=== PATIENT | male | born 1960 | race Caucasian/White ===

== ENCOUNTER → 2020-07-01 | Outpatient (CLI) | payer OTHER ==
--- NOTE | 2020-07-01 14:51 | FL ---
EXAMINATION TYPE: FL barium swallow DATE OF EXAM: 07/01/2020 CLINICAL INDICATION: 60-year-old male R13.10, dysphagia COMPARISON: None Total Fluoroscopy Time: 3 minutes 12 seconds Total images: FINDINGS: The swallowing mechanism is normal and hypopharyngeal anatomy is preserved. Incidentally, some lingua l tonsillar hypertrophy is noted. The cervical and thoracic portions have a normal course and caliber and normal motility. The mucosa is normal and no persistent filling defect is encountered. There is a sliding hiatal hernia which variably distends up to a moderate size. Severe gastroesophage al reflux is demonstrated reaching up to the thoracic inlet IMPRESSION: 1. Incidental lingual tonsillar hypertrophy on lateral views of the cervical esophagus. 2. Sliding hiatal hernia which distends up to a moderate size with severe gastroesophageal reflux.
== END | disposition home or self-care (01) ==
LOC: RADUSWWP 10:43
PROVIDERS: ATTEND Pediatrics
DX: K21.9 Gastro-esophageal reflux disease without esophagitis (principal); K44.9 Diaphragmatic hernia without obstruction or gangrene
CPT/HCPCS: 74220

== ENCOUNTER 2021-07-07 09:44 | Day surgery (SDC) | payer OTHER ==
[2021-07-05 16:03] VITALS: BMI 31.1
[2021-07-07] MEDS: LACTATED RINGERS 1,000 ML IV SCH ×2 (09:59→12:01)
[2021-07-07 10:01] VITALS: TEMP 97
[2021-07-07] MEDS ORDERED: PROPOFOL 10 MG/ML 20 ML VIAL IV ONE (12:01)
--- NOTE | 2021-07-07 12:20 | P.PCN ---
Date of Procedure: 07/07/21 Procedure(s) Performed: BRIEF HISTORY: Patient is a 61-year-old pleasant male scheduled for an elective colonoscopy as a part of screening for colorectal neoplasia. His last colonoscopy was 10 years ago. PROCEDURE PERFORMED: Colonoscopy. PREOPERATIVE DIAGNOSIS: Screening for colon cancer IV sedation per Anesthesia. PROCEDURE: After informed consent was obtained, the patient, was brought into the endoscopy unit. IV sedation was administered by Anesthesia under continuous monitoring. Digital rectal examination was normal. Initially the Olympus CF-160 flexible video colonoscope was then inserted in the rectum, gradually advanced into the cecum without any difficulty. Careful examination was performed as the scope was gradually being withdrawn. Ileocecal valve and the appendiceal orifice were visualized and appeared normal. Prep was excellent. Mucosa of the cecum, ascending colon, transverse colon, descending colon, sigmoid colon, and rectum appeared normal. Scattered sigmoid diverticulosis. Retroflexion was performed in the rectum and small internal hemorrhoids were seen. The patient tolerated the procedure well. IMPRESSION: Normal-appearing colon from rectum to cecum with no evidence of colorectal Scattered sigmoid diverticulosis small internal hemorrhoids . RECOMMENDATIONS: Findings of this examination were discussed with the patientas well as a family. He was advised to have a repeat screening colonoscopy in 10 years].
[2021-07-07 12:27] VITALS: RESP 16
[2021-07-07 12:50] VITALS: BP 135/92; PULSE 65
== END 2021-07-07 13:14 | disposition home or self-care (01) ==
LOC: ORWHC2ENDO 09:44
PROVIDERS: ATTEND Internal Medicine Gastroenterology
DX: Z12.11 Encounter for screening for malignant neoplasm of colon (principal); K64.8 Other hemorrhoids; K57.90 Diverticulosis of intestine, part unspecified, without perforation or abscess without bleeding; I10 Essential (primary) hypertension; E78.5 Hyperlipidemia, unspecified; Z79.899 Other long term (current) drug therapy; Z88.5 Allergy status to narcotic agent
CPT/HCPCS: 45378; J2704

== ENCOUNTER → 2022-01-19 | Outpatient (CLI) | payer OTHER ==
--- NOTE | 2022-01-19 16:30 | XR ---
EXAMINATION TYPE: XR wrist complete RT, XR hand complete RT DATE OF EXAM: 01/19/2022 CLINICAL HISTORY: Pain from repeated use. TECHNIQUE: Frontal, lateral and oblique images of the right wrist and hand are obtained. Fourth scap hoid view right wrist. COMPARISON: None. FINDINGS: There is no acute fracture or dislocation in the right wrist. The carpal joint spaces are m aintained. Overlying soft tissue is unremarkable. There is no acute fracture/dislocation evident in the right hand. Mild narrowing throughout the DIP joints of the phalanges. The overlying soft tissue appears unremarkable. IMPRESSION: As above.
== END | disposition home or self-care (01) ==
LOC: RADXRMAIN 16:08
PROVIDERS: ATTEND Emergency Medicine
DX: M19.041 Primary osteoarthritis, right hand (principal)